=== PATIENT | female | born 1980 ===

== ENCOUNTER → 2025-01-01 10:17 | Outpatient (REF) | payer BC, SELFPAY | LOC: WDC 10:17 | PROVIDERS: ATTENDING PHYSICIAN Obstetrics & Gynecology Gynecology; FAMILY PHYSICIAN Nurse Practitioner Family | DX: R22.32 Localized swelling, mass and lump, left upper limb (principal); N63.32 Unspecified lump in axillary tail of the left breast | CPT/HCPCS: 76642; 77062; 77066 ==

== ENCOUNTER 2025-03-20 06:14 | Day surgery (SDC) | payer BC, SELFPAY | END 2025-03-20 09:50 | disposition home or self-care (01) | LOC: GI 06:14 | PROVIDERS: ATTENDING PHYSICIAN Internal Medicine | DX: Z12.11 Encounter for screening for malignant neoplasm of colon (principal); K64.8 Other hemorrhoids; K58.9 Irritable bowel syndrome, unspecified; K57.30 Diverticulosis of large intestine without perforation or abscess without bleeding; K63.5 Polyp of colon | CPT/HCPCS: 45385; 88305 ==

== ENCOUNTER 2025-04-05 09:44 | Emergency (ER) | payer BC, SELFPAY ==
[2025-04-05 09:46] VITALS: BP 140/73
--- NOTE | 2025-04-05 10:51 | ED.GENMED ---
History of Present Illness
General
Chief Complaint: Abdominal Symptoms
Source: patient
Time Seen by Provider: 04/05/25 10:30
History of Present Illness
History of Present Illness:
45-year-old female presents with intermittent lower abdominal pain over the past week. Getting worse. No change in bowel movements. No urinary symptoms. She was initially seen at the urgent care and had a urinalysis which was negative and sent
here. She has a prior history of a right oophorectomy appendectomy and cholecystectomy. Last menstrual cycle was about 3 weeks ago and was normal. No fevers.
Phy Exam
Physical Exam
Physical Exam:
General: Well-appearing female no acute respiratory distress
HEENT: Normocephalic atraumatic
Heart: Regular rate and rhythm no murmurs
Lungs: Clear no wheeze
Abdomen is soft tender to the lower abdomen mild guarding no rebound tenderness
Extremities: No cyanosis
Course
Orders/Labs/Results
Orders:
Orders
04/05/25 10:51
CT Abd/pelvis W Iv Cont Urgent
Comment:
Reason For Exam: lower abodminal pain
Test Result ONCE
04/05/25 11:11
Complete Blood Count/With Diff Urgent
Comprehensive Metabolic Panel Urgent
HCG, Serum Qualitative Screen Urgent
Lipase Urgent
Comment: ADD ON
04/05/25 11:28
Ketorolac [Toradol] 15 mg IV NOW STA
04/05/25 11:47
Add On- LAB Urgent
Tests Added?: Lipase
04/05/25 14:00
Ketorolac [Toradol] 15 mg .ROUTE .STK-MED ONE
Abnormal Lab Results
04/05/25
11:11
WBC 11.9 H 10^3/uL
(4.8-10.8)
Hct 36.4 L %
(37.0-47.0)
Abs Immat Gran (auto) 0.1 H 10^3/uL
(0-0.05)
Absolute Neuts (auto) 9.0 H 10^3/uL
(1.4-6.5)
Absolute Monos (auto) 1.0 H 10^3/uL
(0.1-0.6)
Neutrophils % 75.3 H %
(42.2-75.2)
Lymphocytes % 14.8 L %
(20.5-51.1)
Chloride 111 H mmol/L
(98-107)
Creatinine 0.5 L mg/dL
(0.6-1.0)
Glucose 108 H mg/dl
(70-99)
04/05/25 11:11
04/05/25 11:11
Vital Signs
Initial and Last Documented VS:
Initial Vital Signs
Temp Pulse Resp BP Pulse Ox
98.2 F 101 16 140/73 98
04/05/25 09:46 04/05/25 09:46 04/05/25 09:46 04/05/25 09:46 04/05/25 09:46
Last Documented Vital Signs
Temp Pulse Resp BP Pulse Ox
97.6 F 86 20 117/69 96
04/05/25 11:16 04/05/25 11:16 04/05/25 11:16 04/05/25 11:16 04/05/25 11:16
MDM/Problems Addressed
Differential Diagnosis Includes:
Lower abdominal pain. Consider diverticulitis was constipation versus perforation versus ovarian cyst or torsion
Check labs and test. CT pending. Patient declined any pain medication at this time
*Critical Care Note
Total Time (30-74mins, 75-104mins- exclusive of procedures): Not Applicable
Update Note
Update Note:
CT demonstrates severe acute diverticulitis of the mid sigmoid colon without complication. Patient resting comfortably after Toradol. Labs reviewed with slight white count 11.9. Discussed options for treatment. Will send home with Levaquin and
Flagyl. She was given a limited supply of pain medicine for the severe pain. Return precautions were given
ED Attending Note
-
Portions of this chart may have been created with voice recognition software.� Occasional wrong word or��sound alike� substitutions may have occurred due to the inherent limitations of voice recognition software.
Discharge Plan
Departure
Patient Disposition: Home (Routine Discharge)
Date of Disposition: 04/05/25
Time of Disposition: 14:53
Patient with high blood pressure during this ER visit?: No
Discharge Problem:
Acute diverticulitis
Instructions: Clear Liquid Diet, Paradise Diet
Prescriptions:
New
oxycodone-acetaminophen [Percocet] 5-325 mg tablet
1 tab PO Q8H PRN (Reason: Pain) Qty: 10 0RF
metronidazole 500 mg tablet
500 mg PO TID Qty: 30 0RF
levofloxacin 500 mg tablet
500 mg PO DAILY 10 Days Qty: 10 0RF
Referrals:
Ana Alvarez CRNP [Family Provider, Internal Medicine]
Activity Restrictions/Additional Instructions:
Drink plenty of clear liquids. Use antibiotics as directed. Return here for severe pain fever vomiting or other concerning finding.
Interventions
Interventions:
*Risk Screen - Suicide Last Done: 04/05/25 11:16
*General Assessment Last Done: 04/05/25 11:16
*Neglect/Abuse Screening Last Done: 04/05/25 11:16
*ED- Fall Risk Assessment Last Done: 04/05/25 11:16
*ED COVID-19 Vaccine History Last Done: 04/05/25 11:16
IB-Khlfzu-Pkfmcgqhos Assessment Last Done: 04/05/25 11:16
Discharge Date and Time
Print Language: GREENLANDIC
[2025-04-05 11:13] VITALS: BMI 29.8
[2025-04-05 11:16] VITALS: BP 117/69
[2025-04-05 11:19] LABS: % Basophils 0.3 % (0-2); % Immature Granulocytes 0.4 % (0-0.5); % Lymphocytes 14.8 % (20.5-51.1); % Monocytes 8.2 % (1.7-9.3); % Neutrophils 75.3 % (42.2-75.2); Absolute Eosinophils 0.1 10^3/uL (0-0.7); Absolute Immature Granulocytes 0.1 10^3/uL (0-0.05); Absolute Lymphocytes 1.8 10^3/uL (1.2-3.4); Hematocrit 36.4 % (37.0-47.0); Hemoglobin 12.4 g/dL (12.0-16.0); Mean Corp Hgb Conc. 34.1 g/dL (33.0-37.0); Mean Corpuscular Hgb 28.4 pg (27.0-31.0); Mean Corpuscular Volume 83.3 fL (81.0-99.0); Mean Platelet Volume 9.3 fL (7.4-10.4); Nucleated Red Blood Cells % 0 %; Platelet Count 225 10^3/uL (130-400); Red Blood Cell Count 4.37 10^6/uL (4.20-5.40); Red Cell Dist. Width 13.2 % (11.5-14.5); White Blood Cell Count 11.9 10^3/uL (4.8-10.8)
[2025-04-05 11:37] LABS: HCG, Serum Qualitative Screen Negative
[2025-04-05 11:40] LABS: ALT (SGPT) 19 U/L (0-35); AST (SGOT) 19 U/L (14-36); Albumin 4.2 g/dl (3.5-5.0); Alkaline Phosphatase 65 U/L (38-126); Blood Urea Nitrogen 8 mg/dl (7-17); Calcium 8.7 mg/dl (8.4-10.2); Carbon Dioxide 24 mmol/L (22-30); Chloride 111 mmol/L (98-107); Estimated Creatinine Clearance 113 ml/min; Glucose 108 mg/dl (70-99); Sodium 140 mmol/L (135-145); Total Bilirubin 0.6 mg/dl (0.2-1.3); Total Protein 6.9 g/dl (6.3-8.2); eGFR > 60.00
[2025-04-05 12:00] VITALS: BP 109/61
[2025-04-05 12:01] LABS: Lipase 87 U/L (23-300)
[2025-04-05] MEDS: TORADOL 15 MG IV (14:03)
[2025-04-05 15:14] VITALS: BP 136/75
== END 2025-04-05 15:17 | disposition home or self-care (01) ==
LOC: EMR 09:44
PROVIDERS: Physician Assistant; EMERGENCY PHYSICIAN Student in an Organized Health Care Education/Training Program; FAMILY PHYSICIAN Nurse Practitioner Family
DX: R10.30 Lower abdominal pain, unspecified (principal); K57.32 Diverticulitis of large intestine without perforation or abscess without bleeding; Z90.49 Acquired absence of other specified parts of digestive tract; Z90.721 Acquired absence of ovaries, unilateral
CPT/HCPCS: 99284; 96374; 74177; 80053; 83690; 84703; 85025; Q9967